=== PATIENT | male | born 1970 | race African-American/Black ===

== ENCOUNTER 2017-02-12 10:26 | Day surgery (SDC) | payer OTHER ==
[2017-02-11 10:57] LABS: ABSOLUTE EOSINOPHILS # (AUTO) 0.2 10^3/uL (0.0-0.6); ABSOLUTE LYMPHOCYTES (AUTO) 1.6 10^3/uL (0.5-4.7); ABSOLUTE MONOCYTES (AUTO) 0.3 10^3/uL (0.1-1.4); ABSOLUTE NEUT (AUTO) 1.6 10^3/uL (1.7-8.2); BASOPHILS % (AUTO) 1.1 % (0-2); EOSINOPHILS % (AUTO) 5.5 % (0-6); HEMATOCRIT 40.3 % (37.9-51.0); HEMOGLOBIN 13.2 g/dL (13.5-17.0); HGB HCT DIFFERENCE -0.7; LYMPHOCYTES % (AUTO) 43.3 % (13-45); MEAN CORPUSCULAR HEMOGLOBIN 27.5 pg (27.0-33.4); MEAN CORPUSCULAR HGB CONC 32.7 g/dL (32.0-36.0); MEAN CORPUSCULAR VOLUME 84 fl (80-97); MONOCYTES % (AUTO) 8.4 % (3-13); RED BLOOD COUNT 4.81 10^6/uL (4.35-5.55); SEGMENTED NEUTROPHILS % (AUTO) 41.7 % (42-78); WHITE BLOOD COUNT 3.8 10^3/uL (4.0-10.5)
[2017-02-11 11:25] LABS: APPEARANCE,URINE CLEAR; BILIRUBIN,URINE NEGATIVE (NEGATIVE); GLUCOSE, URINE NEGATIVE (NEGATIVE); KETONES,URINE NEGATIVE (NEGATIVE); LEUKOCYTE ESTERASE,URINE NEGATIVE (NEGATIVE); NITRITE,URINE NEGATIVE (NEGATIVE); PROTEIN,URINE NEGATIVE (NEGATIVE); URINE SPECIFIC GRAVITY 1.025
[2017-02-11 11:39] LABS: ANION GAP 11 (5-19); BLOOD UREA NITROGEN 17 mg/dL (7-20); CALCIUM 9.3 mg/dL (8.4-10.2); CARBON DIOXIDE 23 mmol/L (22-30); CHLORIDE 107 mmol/L (98-107); CREATININE RESULT 1.29 mg/dL (0.52-1.25); GLUCOSE 84 mg/dL (75-110); POTASSIUM 4.4 mmol/L (3.6-5.0); SODIUM 141.1 mmol/L (137-145)
--- NOTE | 2017-02-11 12:43 | RADIOLOGY REPORT (SQ) ---
EXAM DESCRIPTION: CHEST PA/LATERAL COMPLETED DATE/TIME: 02/11/2017 11:19 am REASON FOR STUDY: PRE OP COMPARISON: None. EXAM PARAMETERS: NUMBER OF VIEWS: two views TECHNIQUE: Digital Frontal and Lateral radiographic views of the chest acquired. RADIATION DOSE: NA LIMITATIONS: none FINDINGS: LUNGS AND PLEURA: No opacities, masses or pneumothorax. No pleural effusion. MEDIASTINUM AND HILAR STRUCTURES: No masses or contour abnormalities. HEART AND VASCULAR STRUCTURES: Heart normal size. No evidence for failure. BONES: No acute findings. HARDWARE: None in the chest. OTHER: No other significant finding. IMPRESSION: NO SIGNIFICANT RADIOGRAPHIC FINDING IN THE CHEST. TECHNICAL DOCUMENTATION: JOB ID: [id number] [employer]- All Rights Reserved
--- NOTE | 2017-02-11 21:05 | EKG REPORT ---
SEVERITY:- NORMAL ECG - SINUS RHYTHM : Confirmed by: Chula Leon MD 11-Feb-2017 21:03:55
[~2017-02-12 10:26] MED LIST: CEFAZOLIN 2 GM/D5W RTU 2 GM/50 ML RTUPB IV PRN; DEXAMETHASONE SOD PHOSPHATE INJ 4 MG/1 ML VIAL ONE; LACTATED RINGERS 1000 ML IV PRN; LIDOCAINE 0.5% INJ-PF (5 MG/ML) 50 ML SDV SUBCUT PRN; LIDOCAINE 2% INJ-PF (20 MG/ML) 10 ML AMPUL ONE; ONDANSETRON HCL INJ/PF 4 MG/2 ML SDV ONE; SUCCINYLCHOLINE CHLORIDE INJ 200 MG/10 ML VIAL ONE
[2017-02-12] MEDS ORDERED: BUPIVACAINE HCL 0.5 % INJ/PF 30 ML SDV ONE (11:01)
[2017-02-12] MEDS ORDERED: ACETAMINOPHEN 100 ML IV ONE (12:02)
[2017-02-12] MEDS ORDERED: MIDAZOLAM 2 MG/2 ML INJ ONE (12:02)
[2017-02-12] MEDS ORDERED: FENTANYL CITRATE INJ/PF 250 MCG/5 ML AMPULE ONE (12:02)
[2017-02-12] MEDS ORDERED: PROPOFOL INJ 200 MG/20 ML VIAL IV ONE (12:02)
[2017-02-12] MEDS ORDERED: DIPHENHYDRAMINE HCL 50 MG/ML VIAL IV PRN (13:03)
[2017-02-12] MEDS ORDERED: MORPHINE SULFATE 10 MG/ML INJ IV PRN (13:03)
[2017-02-12] MEDS ORDERED: PROMETHAZINE HCL INJ 25 MG/1 ML VIAL IV PRN (13:03)
[2017-02-12] MEDS ORDERED: FENTANYL CITRATE INJ/PF 100 MCG/2 ML AMPUL IV PRN ×3 (13:03)
[2017-02-12] MEDS ORDERED: MORPHINE SULFATE 10 MG/ML INJ ONE (14:18)
[2017-02-12] MEDS ORDERED: HYDROMORPHONE HCL INJ/PF 2 MG/ML AMPULE IV PRN (15:21)
[2017-02-12] MEDS ORDERED: OXYCODONE-ACETAMINOPHEN 5-325 MG TABLET PO PRN (15:21)
[2017-02-12] MEDS ORDERED: ONDANSETRON HCL INJ/PF 4 MG/2 ML SDV IV PRN (15:21)
--- NOTE | 2017-02-12 15:22 | PDOC DISCHARGE SUMMARY ---
Discharge Summary (SDC) - Discharge Final Diagnosis: Flexor tendon laceration left hand Date of Surgery: 02/12/17 Discharge Date: 02/12/17 Condition: Good Forms: ASU Anesthesia D/C Instruction, Discharge POC-Surgical Service Treatment or Instructions: Schedule Follow Up w/ Dr. Venancio Thapa @ [facility] for Surgery to be seen in 10-14 days or as scheduled [place]: [place]: [place]: Ice and elevate Keep splint clean/dry/intact. If your fingers become numb please unwrap the Jalen wrap but leave the splint in place, if the sensation does not return within 30 minutes please return to the emergency department. May begin finger range of motion attempting to make full fist. Please use ibuprofen (Motrin or Advil) 600-800 mg every 8 hours as needed for pain or fever. You may also use acetaminophen (Tylenol) 1000 mg every 4-6 hours as needed for pain or fever. Please be aware that many medications contain acetaminophen, do not exceed a total of 1000 mg of acetaminophen every 6 hours. If ibuprofen and acetaminophen are not sufficient for your pain you may take the Percocet. Please be aware that the Percocet does contain Tylenol. Stool softener of choice when on pain medication. DO NOT REMOVE SUTURES FROM THE FINGERNAIL Prescriptions: Oxycodone HCl/Acetaminophen [Percocet 5-325 mg Tablet] 1 - 2 tab PO ASDIR PRN # 55 tablet PRN Reason: Referrals: VENANCIO THAPA DO [ACTIVE STAFF] - Discharge Diet: As Tolerated Respiratory Treatments at Home: Deep Breathing/Coughing Discharge Activity: No Lifting Over 10 Pounds, No Lifting/Push/Pulling Report the Following to Your Physician Immediately: Fever over 101 Degrees, Unusual Bleeding, Redness, Swelling, Warmth, Increased Soreness
--- NOTE | 2017-02-12 15:34 | Operative Report ---
Operative Report DATE OF SURGERY: 02/12/17 PREOPERATIVE DIAGNOSIS: Left hand flexor tendon laceration middle, ring and small finger POSTOPERATIVE DIAGNOSIS: Left Hand Zone I Flexor Tendon Laceration Ring/Small Finger. Partial Laceration Zone I Flexor Tendon Middle Finger OPERATION: Repair Left Hand Zone I Flexor Tendon Laceration Ring/Small Finger. Debridement Partial Laceration Zone I Flexor Tendon Middle Finger SURGEON: CAMERON THAPA ANESTHESIA: GA COMPLICATIONS: None ESTIMATED BLOOD LOSS: minimal PROCEDURE: Indication for above procedure: 46-year-old male who sustained a laceration to his middle ring and small fingers when he fell through the roof and attempted to catch himself cutting his fingers. He presented to my office with inability to flex his fingers. At that point we discussed treatment options including postoperative prognosis and importance of occupational therapy after discussing these options the joint decision was made to proceed with operative intervention. Procedure In Detail: Patient was seen and evaluated in the preoperative holding area. The LEFT upper extremity was initialized and marked. Patient received 2g of Ancef IV for bacterial prophylaxis. Patient was taken back to the operative room where transferred to the operative table and placed under general anesthesia. Once they were adequately anesthetized a nonsterile tourniquet was placed on the upper extremity. A surgical team debriefing was performed ensuring all instrumentation was available, the surgical procedure was discussed with possible concerns reviewed. The upper extremity was prepped with chlorhexidine and alcohol and draped in a sterile fashion. A timeout was done identifying correct patient, procedure and extremity everyone in attendance agree with this and verbalized no concerns. The extremity was exsanguinated the tourniquet was inflated to 250 mmHg. Patient's previous lacerations were opened along the ring and small finger. Initially a small finger was explored. Blunt dissection was performed the ulnar and radial neurovascular bundles were identified and retracted. Patient' s flexor tendon laceration was just distal to the insertion of the FDS tendon of the small finger. One slip of the FDS was resected to allow decreased force of flexion after FDP repair. An oblique skin incision was made over the A1 gwen. Blunt dissection performed. The radial and ulnar neurovascular bundles were retracted and the A1 gwen was incised unfortunately the flexor tendons still was more proximal to this level and thus a carpal tunnel release was required. I then proceeded with exploration of the middle finger. Previous skin incision was opened laceration occurred just distal to the FDS insertion at the middle phalanx. Once again 1 slip of the FDS was resected to allow decreased work of flexion with occupational therapy. An oblique skin incision was made over the A1 gwen radial and ulnar neurovascular bundles were identified and retracted and the A1 gwen was released. Unfortunately similar to the small finger FDP tendon retracted to the carpal canal. Longitudinal skin incision was made from Vega's cardinal line to the distal wrist flexion crease in line with the radial border of the middle finger. Blunt dissection was performed the palmar fascia was incised along the transverse carpal ligament. Within the carpal tunnel there was distally based muscle of the FDP and FDS tendons were identified and confirmed intact through the middle, ring and small finger. The FDP tendon of the ring and small finger was then identified. Through the oblique skin incisions over the A1 pulleys the ring finger FDP tendon was tunneled. And then from the wound site the FDP tendon was passed deep to the A2 gwen ensuring appropriate configuration with the FDS tendon to avoid impingement. The tendon edge was then debrided and a 40 Fiber Loop suture was placed through the most distal 1 cm of the tendon. This was advanced to the insertion point at the base of the distal phalanx. The remnant of the FDP tendon was split longitudinally to allow for later repair. 1 suture limb of the fiber loop was placed radially and a second ulnarly through the nail plate distal to the lunula with the use of a Floyd needle. My recycling assistant held the digit in appropriate flexion did not was secured over the nail plate. This was then reinforced at its insertion with 3-0 PDS suture suturing the remnant tendon to the repaired tendon. There is no evidence of bowstringing the patient had full flexion of the ring finger with tenodesis and forearm squeeze. I then turned my attention to the small finger. Similarly the oblique incision to small finger FDP was tunneled from the carpal canal. And then tunneled deep to the A2 gwen and associated cruciate gwen. Once again a longitudinal split was made within the remnant FDP tendon insertion and a fiber loop suture was placed through the small finger FDP tendon the radial ulnar suture limbs were passed through the nail plate with a Floyd needle and secured into position. There is no evidence of loosening patient had full flexion to the distal palmar crease with forearm squeeze and tenodesis. This was then reinforced to the remnant FDP tendon with interrupted 3-0 PDS suture. I then turned my attention to the middle finger. The longitudinal split was opened and the FDP tendon was identified. Less than 60% of the tendon was lacerated and thus the radial portion which was lacerated was ultimately debrided. Once again patient had intact FDP flexion of the middle finger confirmed with proximal excursion from the carpal canal. The wounds were then irrigated with normal saline. The digital incisions were closed with interrupted 4-0 nylon suture. The carpal tunnel incision was closed with a running 3-0 nylon suture. The oblique trigger finger incisions were closed with interrupted 4-0 nylon suture. The tourniquet was then deflated. A peripheral bleeding was coagulated with bipolar cautery until the wound was dry taking special attention to retract the neurovascular bundles. 20 cc of 0.5% Marcaine with epinephrine was injected for postoperative pain control. Patient had normal peripheral perfusion and skin turgor throughout all digits. Wound was dressed with Xeroform 4 x 4's and patient was placed in a dorsal blocking splint maintaining neutral wrist flexion /extension with the MP joints at 45 of flexion and full extension at the IP joints. Sponge counts, instrument counts, needle counts counts were correct. Patient was then awoken from anesthesia. Transferred from the operating room table to the operating room stretcher. There was no intraoperative complications patient tolerated procedure well stable to PACU. Postoperative plan: Patient will begin occupational therapy as per zone I flexor tendon protocol postop day #5.
[2017-02-12] MEDS: FENTANYL CITRATE INJ/PF 100 MCG/2 ML AMPUL ONE ×2 (16:03→16:08)
[2017-02-12] MEDS ORDERED: FENTANYL CITRATE INJ/PF 100 MCG/2 ML AMPUL ONE (16:07)
[2017-02-12 18:23] VITALS: BP 116/69
== END 2017-02-12 18:30 | disposition home or self-care (01) ==
LOC: OROUT 10:26
PROVIDERS: ATTEND Orthopaedic Surgery
PROC: 0LQ80ZZ Repair Left Hand Tendon, Open Approach (ICD-10-PCS; principal; 2017-02-12 12:30)
DX: S66.125A Laceration of flexor muscle, fascia and tendon of left ring finger at wrist and hand level, initial encounter (principal); S66.127A Laceration of flexor muscle, fascia and tendon of left little finger at wrist and hand level, initial encounter; S61.217A Laceration without foreign body of left little finger without damage to nail, initial encounter; S61.215A Laceration without foreign body of left ring finger without damage to nail, initial encounter; W45.8XXA Other foreign body or object entering through skin, initial encounter; I10 Essential (primary) hypertension; G43.909 Migraine, unspecified, not intractable, without status migrainosus; K21.9 Gastro-esophageal reflux disease without esophagitis; Z79.899 Other long term (current) drug therapy
CPT/HCPCS: 93005; 36415; 85025; 80048; 81001; 71020; 93010; 26350 ×2; J2250; J1100; J3010 ×2; J2270; J0330; J2405; J2704; J3490; J0690; J0131; 1810